=== PATIENT | female | born 1950 | race Caucasian/White ===

== ENCOUNTER 2019-06-28 14:33 | Outpatient (CLI) | payer MEDICARE, OTHER, SELFPAY | END 2019-06-28 14:34 | disposition home or self-care (01) | LOC: SPT 14:34 | PROVIDERS: Family Provider Registered Nurse; PCP Registered Nurse; Visit Provider Specialist | DX: G56.01 Carpal tunnel syndrome, right upper limb (principal) | CPT/HCPCS: L3908 ==

== ENCOUNTER 2019-06-29 06:41 | Day surgery (SDC) | payer MEDICARE, OTHER, SELFPAY ==
[2019-06-28 15:51] VITALS: BMI 44.2
[2019-06-29 06:51] VITALS: BP 181/65; PULSE 81; RESP 20; TEMP 36.8; O2SAT 99
--- NOTE | 2019-06-29 07:02 | PM.HPUD ---
H&P update H&P Update: DATE OF SURGERY/PROCEDURE: 06/29/19 DATE H&P PERFORMED: 06/28/19 H&P UPDATE INFORMATION: H&P completed within last 30 days and H&P is in [facility] EMR on date indicated PREOP DIAGNOSIS: Right Carpal Tunnel Syndrome PLANNED PROCEDURE: Operation Date: 06/29/19 08:05 Proposed Procedures Carpal Tunnel Release [id number] G56.01(Right) - Magalie Joyce MD Full H&P Perinent History: Medical/Surgical History: Medical History (Updated 06/28/19 @ 14:09 by Magalie Joyce MD) Bilateral primary osteoarthritis of knee (Acute) Carpal tunnel syndrome of right wrist (Acute) Family History: Family History (Updated 06/28/19 @ 13:00 by Milka Moscoso LPN) Denies family history of Diabetes CAD (coronary artery disease) Clotting disorder Dementia Hyperlipidemia Psychiatric illness Chronic kidney disease (CKD) Suicide Anesthesia complication Bleeding disorder Family history of premature coronary artery disease Lung disease Cancer Hypertension Stroke Social History: Social History Smoking and tobacco status: never smoked Alcohol intake: never
[2019-06-29] MEDS: sodium chloride 0.9% 1,000 ML 30 ML IV (07:13)
--- NOTE | 2019-06-29 07:14 | ANES.PREANE2 ---
Pre-Anesthetic Assessment Pre-Anesthetic Assessment: Height/Weight: Height 1.68 m Weight 124.284 kg Temp Pulse Resp BP Pulse Ox 98.2 F 81 20 H 181/65 99 06/29/19 06:51 06/29/19 06:51 06/29/19 06:51 06/29/19 06:51 06/29/19 06:51 Preop Diagnosis: Right Carpal Tunnel Syndrome Proposed Procedure: Operation Date: 06/29/19 08:05 Proposed Procedures p Carpal Tunnel Release [id number] G56.01(Right) - Magalie Joyce MD Familial anesthetic complications: No personal hx of anesthesia, no family trouble Was Beta Rashard taken within 24 hours: Yes Last intake: Intake Last Liquid Date 06/28/19 Last Liquid Time 23:55 Last Solid Date 06/28/19 Last Solid Time 18:00 Social: Social History: No alcohol and No tobacco Exam: Pre-Anes Outpt Exam: alert, oriented x 3, clear to auscultation bilaterally and regular rate & rhythm Airway: Dentition: Full Pulmonary: Pulmonary: None reported Comments: sinus infection 1 month ago CV/HEM: CV/HEM: HTN : : None reported Hepatic: Hepatic: None reported GI: GI: None reported Metabolic: Metabolic: Hyperlipidemia and Morbid obesity Musc/skel: Musc/skel: OA/DJD Neuropsych: Neuropsych: None reported Anesthetic Plan: ASA status: II Anesthesia: MAC Meds/Allergies Current Medications: Current Medications Generic Name Dose Route Start Last Admin Trade Name Freq PRN Reason Stop Dose Admin Sodium Chloride 1,000 mls @ 30 ml s/hr 06/29/19 06:00 06/29/19 07:13 Sodium Chloride 0.9% IV 06/30/19 05:59 30 mls/hr .Q24H MADI Administration PFSH Anesthesia PFSH: Medical History (Updated 06/28/19 @ 14:09 by Magalie Joyce MD) Bilateral primary osteoarthritis of knee (Acute) Carpal tunnel syndrome of right wrist (Acute) Social History Smoking and tobacco status: never smoked Alcohol intake: never Data Anesthesia Cardiac Studies: No Data to Display
--- NOTE | 2019-06-29 08:57 | PM.OP ---
Operative Report Date of procedure: June 29, 2019 Pre-op Diagnosis: Right Carpal Tunnel Syndrome Post-op diagnosis: same Post-op Findings: Significant median nerve compression at the transverse carpal ligament Procedure Done: Right carpal tunnel release Pathology: none sent Surgeon: Magalie Joyce Welding Equipment Sales Representative: None Anesthesia: MAC (With Ruy block) Estimated blood loss (mL): 5 Tourniquet time (min): 38 IV fluids (mL): 400 Complications: None Condition: stable Disposition: same day Brief History: Severe compression of right median nerve at the level of the transverse carpal ligament with significant purple discoloration hourglass deformity. Procedure: The patient was brought to the operating theater. The patient had a Ruy block with MAC. The tourniquet was elevated to 250 mmHg for a total tourniquet time of 38 minutes. The patient was also given Ancef 2 g preoperatively. The arm was then prepped and draped with DuraPrep in usual fashion with the arm draped free. A surgical pause was performed. At the time, the surgical pause, we confirmed the site and side of surgery. We also confirmed the patient's identity, appropriate and timely administration of preoperative antibiotics and preoperative surgical markings. An incision was then made along the thenar crease. The incision crossed the wrist joint in a curvilinear fashion. Dissection continued through skin and soft tissues using a scalpel. The palmaris longus was identified along with the transverse carpal ligament. Each of these was released carefully to avoid injury to the median nerve. We were able to dissect gently into the carpal canal which was noted to be quite tight with significant compression across the median nerve. The nerve was visualized and was purple and demonstrated an hourglass shape. The canal was subsequently palpated to assure there was no bony encroachment upon the canal. There was a quite thickened fibrous tissue within the canal, and this was opened longitudinally as well. The canal was then palpated distally and proximally to assure that my small finger was passed easily without impingement. Finding this to be so, attention was directed to closure. The wound was irrigated with ropivacaine plain. It was then closed with 3-0 nylon in an interrupted mattress fashion. Sterile dressing was then placed consisting of Xeroform gauze, fluffed fluffs, sterile soft roll, a volar splint, and an Felipe wrap. The tourniquet was released after 38 minutes. There were no complications. There were no specimens. The procedure was well tolerated. Plan is the patient will be discharged home.
[2019-06-29 09:04] VITALS: BP 149/86; PULSE 85; RESP 18; TEMP 36.1; O2SAT 94
[2019-06-29 09:26] VITALS: BP 124/76; PULSE 72; RESP 20; O2SAT 97
== END 2019-06-29 09:46 | disposition home or self-care (01) ==
PROVIDERS: Family Provider Registered Nurse; PCP Registered Nurse; Visit Provider Specialist
PROC: (CPT 64721; principal; 2019-06-29 07:55)
DX: G56.01 Carpal tunnel syndrome, right upper limb (principal); E78.5 Hyperlipidemia, unspecified; E66.01 Morbid (severe) obesity due to excess calories; Z68.41 Body mass index [BMI] 40.0-44.9, adult; E11.9 Type 2 diabetes mellitus without complications; I25.10 Atherosclerotic heart disease of native coronary artery without angina pectoris; F03.90 Unspecified dementia, unspecified severity, without behavioral disturbance, psychotic disturbance, mood disturbance, and anxiety; I12.9 Hypertensive chronic kidney disease with stage 1 through stage 4 chronic kidney disease, or unspecified chronic kidney disease; N18.9 Chronic kidney disease, unspecified; Z82.49 Family history of ischemic heart disease and other diseases of the circulatory system
CPT/HCPCS: 64721; 12345; J0690; J2001; J2704; J3010; J3490; J7030

== ENCOUNTER 2019-10-06 10:54 | Outpatient (CLI) | payer MEDICARE, OTHER, SELFPAY ==
--- NOTE | 2019-10-06 | US_ITS ---
WS: [id number] RENAL ULTRASOUND URINARY BLADDER ULTRASOUND HISTORY: CHRONIC KIDNEY DISEASE COMPARISON: None available. TECHNIQUE: 2-D and color Doppler imaging of the kidney submitted. Right kidney: 9.5 cm x 4.9 cm x 6.0 cm. Kidney is low normal size with slight increased echogenicity. No mass or obstruction. Normal cortical thickness. Left kidney: 9.5 cm x 4.6 cm x 5.7 cm. Low normal size. No mass or obstruction. Minimal increased echogenicity. Aorta: Normal. Urinary Bladder: Well-distended urinary bladder. No intraluminal filling defect. No free fluid. US/US renal BI with bladder IMPRESSION: 1. Low normal size of the kidneys with minimal changes of early chronic medica l renal disease. 2. No obstruction. 3. Normal bladder.
== END 2019-10-06 10:55 | disposition home or self-care (01) ==
LOC: RAD 10:57
PROVIDERS: Family Provider Registered Nurse; PCP Registered Nurse; Visit Provider Internal Medicine Nephrology
DX: N18.3 Chronic kidney disease, stage 3 (moderate) (principal); Z87.448 Personal history of other diseases of urinary system
CPT/HCPCS: 76770; 76857